=== PATIENT | female | born 1995 | race Caucasian/White ===

== ENCOUNTER 2023-05-29 04:55 | Emergency (ER) | payer OTHER ==
[~2023-05-29] VITALS: Ht 149.9 cm; Wt 59.0 kg
[2023-05-29 05:00] VITALS: BP 113/55; PULSE 110; RESP 17; TEMP 98; O2SAT 100
--- NOTE | 2023-05-29 05:00 | NUR ---
to bed ambulatory
--- NOTE | 2023-05-29 05:30 | NUR ---
s/p vaginal plasty last friday in [place], she can not urinate with abd pain, abd distention Addendum: 05/29/23 at 0546 by ELOINA Anel'Asmita POSSIBLE VAGINAL PROLAPSE AFTER VAGINAL PROCEDURE WAS DONE IN [place]
--- NOTE | 2023-05-29 05:37 | NUR ---
Dr. Ott examining patient.
[2023-05-29 05:42] LABS: APPEARANCE,URINE CLEAR (CLEAR); BILIRUBIN,URINE NEGATIVE (NEGATIVE); BLOOD, URINE 3+ (NEGATIVE); COLOR,URINE YELLOW (YELLOW); LEUKOCYTE ESTERASE ,URINE 1+ (NEGATIVE); NITRITE, URINE POSITIVE (NEGATIVE); UGLUCOSE NEGATIVE (NEGATIVE)
[2023-05-29 06:01] LABS: RBC,URINE 11-20 (MOD) /HPF (0-5)
--- NOTE | 2023-05-29 06:07 | NUR ---
Dr. Kaur examining patient.
--- NOTE | 2023-05-29 06:10 | NUR ---
F/C INSERTED WITH IMMEDIATE RETURN OF LARGE AMOUNT ORANGE COLORED URINE
--- NOTE | 2023-05-29 06:50 | NUR ---
LEG BAG ATTACHED AND EDUCATION GIVEN
[2023-05-29 06:55] VITALS: BP 113/55; PULSE 110; RESP 17; TEMP 98; O2SAT 100
--- NOTE | 2023-05-29 06:55 | NUR ---
Patient discharged with v/s stable. Written and verbal after care instructions given and explained. Patient verbalized understanding. Ambulatory with steady gait. All questions addressed prior to discharge. Advised to follow up with PMD.
== END 2023-05-29 06:55 | disposition home or self-care (01) ==
LOC: MED 04:55
DX: R33.9 Retention of urine, unspecified (principal); N39.0 Urinary tract infection, site not specified; Z98.890 Other specified postprocedural states
CPT/HCPCS: 51702; 81001; 87086; 99284

== ENCOUNTER 2023-05-30 20:59 | Emergency (ER) | payer OTHER ==
[~2023-05-30] VITALS: Ht 149.9 cm; Wt 59.4 kg
[2023-05-30 21:01] VITALS: BP 121/75; PULSE 110; RESP 16; TEMP 97.4; O2SAT 98
--- NOTE | 2023-05-30 21:12 | NUR ---
PT TO BED #8
--- NOTE | 2023-05-30 22:14 | NUR ---
DR PERDOMO AT BEDSIDE
[2023-05-30 22:21] VITALS: O2SAT 98
--- NOTE | 2023-05-30 22:25 | NUR ---
27Y/O PT BIB SELF PRESENTING WITH VELA CATHETER INSERTED AND LEG BAG. PT STATES SHE WENT TO URGENT CARE FOR VELA CATHETER REMOVAL BUT WAS TOLD TO COME TO ER. NKDA HX URINE RETENTION
== END 2023-05-30 22:31 | disposition home or self-care (01) ==
LOC: MED 20:59
DX: R33.9 Retention of urine, unspecified (principal); Z46.6 Encounter for fitting and adjustment of urinary device; Z98.890 Other specified postprocedural states
CPT/HCPCS: 51702; 99281; 99284